=== PATIENT | male | born 1940 | race Caucasian/White ===

== ENCOUNTER 2016-08-12 10:22 | Outpatient (CLI) | payer MEDICARE, OTHER | END 2016-08-12 10:23 | LOC: EDBD → POD 10:22 | PROVIDERS: ATTEND Podiatrist Public Medicine | DX: M05.89 Other rheumatoid arthritis with rheumatoid factor of multiple sites (principal); B35.1 Tinea unguium; L60.0 Ingrowing nail; M79.674 Pain in right toe(s); M79.675 Pain in left toe(s) | CPT/HCPCS: 11721; G0463 ==

== ENCOUNTER 2016-08-20 15:06 | Observation (INO) | payer MEDICARE, OTHER ==
[2016-08-20] MEDS ORDERED: NITROGLYCERIN 0.4 MG TAB.SUBL SL ONE (15:23)
[2016-08-20] MEDS ORDERED: IPRATROPIUM/ALBUTEROL SULFATE 3 ML AMPUL.NEB NEB ONE (15:24)
--- NOTE | 2016-08-20 15:30 | ED Physician Documentation ---
Dyspnea - HISTORIAN Historian: patient, paramedics - HPI Stated Complaint: Short of breath Chief Complaint: Dyspnea Additional Information: exab sob today saw DR HAMMER 2d ago w/tx better w/ antibiotics till today - responded well to duoneb ems-bp still quite high 211/134 Onset: days ago (am) Duration: continues in ED, better Initiating Event: upper respiratory illness, other (on levaquin) Severity: moderate Exacerbated By: exertion, coughing Associated Symptoms: denies: chest pain, chest discomfort, bloody cough, productive cough, heart racing - ROS CONST: recent illness EYES/ENT: none GI/: none NEURO/PSYCH: denies: headache MS/SKIN/LYMPH: none - PAST HX Lung Disease: asthma, COPD, other (htn - rh arth) Cardiac Disease: denies: CHF, CAD PE Risk Factors: hypertension Surgeries/Procedures: other (cea rt hernia retinal detachment aortic dilation w/ aortic insuff) Allergies/Adverse Reactions: Allergies Allergy/AdvReac Type Severity Reaction Status Date / Time No Known Allergies Allergy Verified 08/20/16 15:19 Home Medications: Ambulatory Orders Medication Instructions Recorded Leflunomide [Arava] 5 mg PO DAILY 08/05/12 Aclidinium [place] [Tudorza 400 mcg IH BID 02/19/16 Pressair] Calcium 600-Vit D3 200 Tablet 1 each PO BID u2 02/19/16 - SOCIAL HX Smoking History: non-smoker (since ) Alcohol Use: rarely Drug Use: none - FAMILY HX Family History: no significant history - VITAL SIGNS Vital Signs: Vital Signs Temp Pulse Resp BP Pulse Ox 99 F 98 H 18 203/143 96 08/20/16 15:15 08/20/16 15:15 08/20/16 15:15 08/20/16 15:15 08/20/16 15:15 - REVIEWED ASSESSMENTS Nursing Assessment Reviewed: Yes Vitals Reviewed: Yes ED Results Lab/Radiology - Radiology Radiology Impressions: cxr= adv copd asvd aortic enlargement poss lt basal infiltrate - Orders Orders: ED Orders Category Date Time Status Place Saline Lock/IV Now Care 08/20/16 15:24 Ordered CHEST P.A.&LAT 2 VIEWS [RAD] Stat Exams 08/20/16 Ordered ARTERIAL BLOOD GAS Stat Lab 08/20/16 Uncollected CBC/PLATELET/DIFF Routine Lab 08/20/16 Ordered CMP Routine Lab 08/20/16 Ordered Ipratropium/Albuterol Sulfate [Duoneb] Med 08/20/16 15:24 Once 3 ml NEB NOW ONE Nitroglycerin [Nitroquick] Med 08/20/16 15:23 Once 0.4 mg SL NOW ONE Oxygen Daily Oxygen 08/20/16 15:30 Ordered EKG WITH COMPARISON Stat Ther 08/20/16 Ordered Dyspnea Physical Exam - EXAM General Appearance: moderate distress EENT: eye inspection normal Neck: nml inspection Respiratory: speaks full sentences, respiratory distress, prolonged expirations , decreased air movement, wheezes, rales, rhonchi. No: breath sounds nml, retractions, accessory muscle use CVS: reg. rate & rhythm, no murmur Abdomen: non-tender, no distention Skin: color nml, no rash. No: cyanosis, diaphoresis, pallor, ecchymosis Extremities: non-tender, normal range of motion, no edema, other (low legs feet cold pallor) Neuro/Psych: oriented x3, CN's nml as tested, motor nml, sensation nml, mood/ affect nml Discharge Clincal Impression: acute dexaberation copd, Uncontrolled hypertension Home Medications: Ambulatory Orders Leflunomide [Arava] 5 mg PO DAILY 08/05/12 Aclidinium [place] [Tudorza Pressair] 400 mcg IH BID 02/19/16 Calcium 600-Vit D3 200 Tablet 1 each PO BID u2 02/19/16 Comments: joao mcintosh w/pt/DR HAMMER admit observation Condition: Fair Disposition: ADMITTED INPATIENT Decision to Admit: [id number] Decision Time: 17:15
[2016-08-20] MEDS ORDERED: methylPREDNISolone SOD SUCC 125 MG/2 ML VIAL IVP ONE (15:35)
[2016-08-20 15:52] LABS: MEAN CORPUSCULAR HEMOGLOBIN 25.6 pg (28.0-34.0); MEAN CORPUSCULAR VOLUME 79.8 fl (80.0-100.0)
[2016-08-20] MEDS ORDERED: CloNIDine HCL 0.1 MG TABLET PO ONE ×2 (15:55→17:02)
[2016-08-20 16:00] LABS: eGFR (African) > 60; eGFR (Non-African) > 60
[2016-08-20 16:22] LABS: SEGMENTED NEUTROPHILS % 73 % (39-79)
[2016-08-20 16:23] LABS: BASOPHILS % 1 % (0-2); EOSINOPHILS % 1 % (0-7); MONOCYTES % 5 % (0-11)
[2016-08-20] MEDS ORDERED: IPRATROPIUM/ALBUTEROL SULFATE 3 ML AMPUL.NEB NEB SCH (18:00)
[2016-08-20 18:43] VITALS: BMI 20.2
--- NOTE | 2016-08-20 18:51 | Diagnostic Imaging Report ---
SINCERE GARIBAY [facility] [address] [facility].[address] [address] Report Submission Date: Aug 20, 2016 4:06:10 PM TALENT DIRECTOR Patient Study Name: EPHRAIM RAY Date: Aug 20, 2016 3:36:28 PM TALENT DIRECTOR Modality Type: CR Gender: M Description: CHEST : 39 Institution: [facility] Physician: SINCERE GARIBAY 3 views of the chest History: Shortness of breath Findings: Comparison: 2011, CT chest dated March 20, 2016 The cardiomediastinal silhouette is stable consistent with known aortic aneurysm The heart is normal in size Emphysema. Right basilar atelectasis is present There is no pleural effusion pneumothorax Right infrahilar scarring is again seen Thoracic spine vertebral body compression deformities and vertebroplasty changes are again noted Impression: 1. Right basilar atelectasis. No pleural effusion. Emphysema 2. Stable cardiomediastinal silhouette and aortic contour consistent with patient's known aortic aneurysm 3. Bilateral parahilar scarring again noted, right greater than left. Electronically signed on Aug 20, 2016 4:06:10 PM TALENT DIRECTOR by: Jasmyne LOWERY
[2016-08-20] MEDS ORDERED: CARVEDILOL 12.5 MG TABLET PO ONE (19:50)
[2016-08-20] MEDS ORDERED: CALCIUM CARB 600MG/VIT D-3 400 1 EACH TABLET ONE (19:50)
[2016-08-20] MEDS ORDERED: HYDROXYZINE HCL 25 MG TABLET PO ONE (19:50)
[2016-08-20] MEDS ORDERED: CARVEDILOL 25 MG TABLET PO SCH (21:00)
[2016-08-20] MEDS ORDERED: CALCIUM VIT D3 PO SCH (21:00)
[2016-08-20] MEDS: ACLIDINIUM BROMIDE 400 MCG IH SCH (22:51)
[2016-08-20] MEDS: HYDROXYCHLOROQUINE SULFATE 200 MG TABLET PO SCH (22:51)
[2016-08-21] MEDS: IPRATROPIUM/ALBUTEROL SULFATE 3 ML AMPUL.NEB NEB SCH ×3 (00:13→12:40)
[2016-08-21 07:40] LABS: ABG BASE EXCESS 1.9 (-2 - +2); ABG PH 7.46 (7.35-7.45)
[2016-08-21] MEDS ORDERED: VILANTEROL IH SCH (09:00)
[2016-08-21] MEDS ORDERED: LEFLUNOMIDE PO SCH (09:00)
[2016-08-21] MEDS ORDERED: LISINOPRIL 20 MG TABLET PO SCH (09:00)
[2016-08-21] MEDS ORDERED: FLUTICASONE IH SCH (09:00)
[2016-08-21] MEDS: HYDROXYCHLOROQUINE SULFATE 200 MG TABLET PO SCH (09:56)
[2016-08-21] MEDS: ACLIDINIUM BROMIDE 400 MCG IH SCH (09:59)
[2016-08-21 10:30] VITALS: BP 149/83
--- NOTE | 2016-09-30 12:58 | Discharge Summary ---
Discharge Summary - Discharge Sumary History of Present Illness: 76yo white male who two days prior to admission was seen in my clinic office for bronchitis, cough, GOMEZ. He was started on antibiotic and steroids. His condition deteriorated and was ween in the ED. Was felt to be having an exacerbation of his COPD. His BP was noted to be elevated quite a bit and was admitted for further evaluation and treatment. Condition at Discharge: Stable Home Medications: Ambulatory Orders Medication Instructions Recorded Leflunomide [Arava] 5 mg PO DAILY 08/05/12 Aclidinium [place] [Tudorza 400 mcg IH BID 02/19/16 Pressair] Calcium 600-Vit D3 200 Tablet 1 each PO BID u2 02/19/16 Ipratropium/Albuterol Sulfate 3 ml NEB Q6 PRN #60 ampul.neb 08/21/16 [Duoneb] Consultations this Visit: None Procedures this Visit: None Allergies/Adverse Reactions: Allergies Allergy/AdvReac Type Severity Reaction Status Date / Time No Known Allergies Allergy Verified 08/20/16 15:19 Discharge Summary: Patient was started on high flow nebulization treatments of albuterol every 4 hours. Patient was started on IV steroids. Patient is at her SaO2 gradually increased with decreasing his supplemental oxygen needs. Patient was found to be hyponatremic. Patient's vital signs otherwise remained stable. At the time of admission. In the ED patient blood pressure was high with a systolic at 212. By the time. Patient was breathing better and wished to lower his systolic had dropped to 140s. Patient's blood pressure remained stable throughout the remainder of hospitalization without any further intervention. At the time of discharge was felt that patient could be managed on an outpatient basis and was subsequently discharged home in stable condition. - Final Diagnosis (1) COPD (chronic obstructive pulmonary disease) Problems: improved with treatment (2) CAD (coronary artery disease) Problems: stable on home meds (3) Essential hypertension Problems: stable on home medication
== END 2016-08-21 13:15 | disposition home or self-care (01) ==
LOC: EDBD → ED 15:06 → INTOOBSV 17:31 → SOUTH 17:31 → EDBD 17:31
PROVIDERS: ADMIT Family Medicine; ATTEND Family Medicine
DX: J44.1 Chronic obstructive pulmonary disease with (acute) exacerbation (principal); I25.10 Atherosclerotic heart disease of native coronary artery without angina pectoris; I10 Essential (primary) hypertension
CPT/HCPCS: 36600; 71020; 80053; 82803; 85025; 93005; G0378; J2930; 96374; 99284; G0379

== ENCOUNTER 2016-12-02 10:00 | Outpatient (CLI) | payer MEDICARE, OTHER | END 2016-12-02 10:02 | LOC: EDBD → POD 10:00 | PROVIDERS: ATTEND Podiatrist Public Medicine | DX: B35.1 Tinea unguium (principal); L60.0 Ingrowing nail; M79.674 Pain in right toe(s); M79.675 Pain in left toe(s); M05.89 Other rheumatoid arthritis with rheumatoid factor of multiple sites | CPT/HCPCS: 11721; G0463 ==

== ENCOUNTER 2017-02-25 11:00 | Outpatient (CLI) | payer MEDICARE, OTHER | END 2017-02-25 11:02 | LOC: RT 11:00 | PROVIDERS: ATTEND Family Medicine | DX: R00.2 Palpitations (principal) ==

== ENCOUNTER 2017-03-03 09:32 | Outpatient (CLI) | payer MEDICARE, OTHER | END 2017-03-03 09:33 | LOC: POD 09:32 | PROVIDERS: ATTEND Podiatrist Public Medicine | DX: B35.1 Tinea unguium (principal); M79.674 Pain in right toe(s); M79.675 Pain in left toe(s); L60.0 Ingrowing nail; M05.89 Other rheumatoid arthritis with rheumatoid factor of multiple sites | CPT/HCPCS: 11721; G0463 ==

== ENCOUNTER 2017-06-02 09:30 | Outpatient (CLI) | payer MEDICARE, OTHER | END 2017-06-02 10:30 | LOC: POD 09:30 | PROVIDERS: ATTEND Podiatrist Public Medicine | DX: M05.89 Other rheumatoid arthritis with rheumatoid factor of multiple sites (principal); B35.1 Tinea unguium; L60.0 Ingrowing nail; M79.674 Pain in right toe(s); M79.675 Pain in left toe(s) | CPT/HCPCS: 11721; G0463 ==

== ENCOUNTER 2017-06-24 15:52 | Outpatient (CLI) | payer MEDICARE, OTHER ==
--- NOTE | 2017-06-24 18:26 | Diagnostic Imaging Report ---
SAJI HAMMER~ [facility] [address] [facility] [address] [address] ~ ~ ~ ~ Report Submission Date: Jun 24, 2017 4:33:58 PM VISUAL TRAINING AIDE Patient ~ Study Name: EPHRAIM RAY ~ Date: Jun 24, 2017 4:14:50 PM VISUAL TRAINING AIDE ~ Modality Type: CR Gender: M ~ Description: SPINE : 39 ~ Institution: [facility] Physician: SAJI HAMMER ~ ~ ~ Examination: Plain film lumbar spine History: Back discomfort. Findings: 3 views of the lumbar spine demonstrates osteopenia. Normal height.~ No anterior compression. Scattered ossific spurs. Aortoiliac stent. Impression: Osteopenia and degenerative changes. No vertebral body compression deformity. ~ Electronically signed on Jun 24, 2017 4:33:58 PM VISUAL TRAINING AIDE by: Stone LOWERY
== END 2017-06-24 15:53 ==
LOC: RAD 15:52
PROVIDERS: ATTEND Family Medicine
DX: M54.5 Low back pain (principal)
CPT/HCPCS: 72100

== ENCOUNTER 2017-07-20 11:30 | Observation (INO) | payer MEDICARE, OTHER ==
[2017-07-20 11:53] LABS: MEAN CORPUSCULAR HEMOGLOBIN 27.2 pg (28.0-34.0); MEAN CORPUSCULAR VOLUME 84.9 fl (80.0-100.0)
[2017-07-20 12:07] LABS: eGFR (African) > 60; eGFR (Non-African) > 60
[2017-07-20 12:18] LABS: MONOCYTES % 3 % (0-11); SEGMENTED NEUTROPHILS % 82 % (39-79)
--- NOTE | 2017-07-20 12:39 | Diagnostic Imaging Report ---
JOSE MENJIVAR [facility] [address] [facility] [address] [address] Report Submission Date: Jul 20, 2017 12:22:54 PM TOXICOLOGIST Patient Study Name: EPHRAIM RAY Date: Jul 20, 2017 11:52:06 AM TOXICOLOGIST Modality Type: CR Gender: M Description: CHEST : 39 Institution: [facility] Physician: JOSE MENJIVAR Examination: PA and lateral chest. History: Evaluate lung hutson. Comparison exam: 20 August 2016 Findings: PA lateral chest demonstrate a normal cardiac size. Again identified is significant tortuosity of the thoracic aorta: stable to prior study. Diffuse emphysematous changes. Linear density involving the right minor fissure. Flattening of the diaphragm on lateral view. Mid thoracic kyphosis with kyphoplasty. Impression: Emphysematous changes. New linear density scarring/atelectasis involving the right minor fissure. Stable significant tortuosity of the thoracic aorta. Electronically signed on Jul 20, 2017 12:22:54 PM TOXICOLOGIST by: Stone LOWERY
[2017-07-20] MEDS ORDERED: IPRATROPIUM/ALBUTEROL SULFATE 3 ML AMPUL.NEB NEB PRN (15:41)
[2017-07-20 15:55] VITALS: BMI 19.1
[2017-07-20] MEDS ORDERED: SALINE FLUSH 10 ML DISP.SYRIN IVF ONE ×2 (16:23→22:41)
[2017-07-20] MEDS: ENOXAPARIN SODIUM 30 MG/0.3 ML DISP.SYRIN SQ SCH (16:38)
[2017-07-20] MEDS: 0.9 % SODIUM CHLORIDE 1,000 ML IV SCH (16:38)
--- NOTE | 2017-07-20 16:59 | History and Physical Report ---
History of Present Illnes - History of Present Illness Reason for Visit: shortness of breath History of Present Illness: Tal is a 77yo male with a medical history that includes COPD and RA. He has been feeling poorly for about 6 days now with shortness of breath and productive cough. He has also started feeling weak and lightheaded, he thinks from the poor breathing. Under normal circumstances he uses the Albuterol once daily, but he has been using it multiple times daily. His chest feels tight. He presented at clinical this morning and then had labwork that showed WBC count of 13.4 with 82% neutrophils. Chest Xray done today is essentially stable from the last exam, with a small amount of new right sided atelectasis. - Past Medical History Cardiac: HTN, Other (AAA) Pulmonary: COPD, Sleep Apnea Gastrointestinal: Constipation. denies: Inflam bowel disease Rheumatologic: Rheumatoid arthritis. denies: Vasculitis Dermatology: Basal cell - Past Surgical History Past Surgical History: Cataract Removal, Other (AAA stent, rotator cuff repair, RUL lobectomy, Carotid endartectomy) - Past Family History Mother Family History: Cancer (breast), Hypertension - Past Social History Smoke: Quit (1998) Alcohol: Rare Drugs: None Lives: Alone - Health Maintenance Health Maintenance: Influenza Vaccine, Pneumococcal Vaccine Influenza Vaccine: Current for this Influenza Season Pneumonia Vaccine: Yes Resuscitation Status: Resusciation Status Resuscitation Status Full Code Review of Systems - Review of Systems Constitutional: Weakness, Malaise. negative: Fever Eyes: negative: pain, vision change ENT: negative: Ear Pain, Ear Discharge Respiratory: Cough, Shortness of Breath, SOB with Excertion, Sputum. negative: Dry Cardiovascular: Light Headedness. negative: Chest Pain, Edema Gastrointestinal: negative: Nausea, Abdominal Pain Genitourinary: negative: Dysuria, Hematuria Musculoskeletal: negative: Leg Pain, Foot Pain Skin: negative: Rash, Lesions Neurological: Weakness. negative: Change in Speech, Confusion, Seizures - Medications/Allergies Allergies/Adverse Reactions: Allergies Allergy/AdvReac Type Severity Reaction Status Date / Time No Known Allergies Allergy Verified 08/20/16 15:19 Current Inpatient Medications: Current Inpatient Medications Albuterol/Ipratropium (Duoneb) 3 ml NEB Q4 PRN PRN Reason: Wheezing Enoxaparin Sodium (Lovenox) 30 mg SQ QD JACOBO Stop: 08/02/17 16:01 Last Admin: 01/30/18 16:38 Dose: 30 mg Sodium Chloride (Normal Saline) 1,000 mls @ 100 mls/hr IV Q10H [facility] Last Admin: 07/20/17 16:38 Dose: 100 mls/hr Exam - Exam Vital Signs: Vital Signs (72 hours) 07/20/17 13:49 Temperature 98.7 F Pulse Rate [ 128 H Pulse ox] Respiratory 20 Rate Blood Pressure 97/73 [Left Arm] O2 Sat by Pulse 96 Oximetry General: Alert, Oriented to Person, Oriented to Place, Oriented to Time, Cooperative, Mild distress HEENT: Atraumatic, PERRLA, EOMI Neck: No: Stridor, Lymphadenopathy Lungs: Speaks full Sentences, Wheezes, Prolonged Expiration, Accessory Muscle Use. No: Rales Cardiovascular: Regular rate. No: Rubs, Murmur Abdomen: Soft, No tenderness. No: Distended Integumentary: [place], Warm, Dry Extremities: No clubbing, No cyanosis, No tenderness/swelling Neurological: Normal speech, Normal tone, Cranial nerves 3-12 NL Psych/Mental Status: Mental status NL, Mood NL - Laboratory Results Laboratory Results: Laboratory Results 07/20/17 07/20/17 11:43 11:43 WBC 13.40 H RBC 5.22 H Hgb 14.2 Hct 44.3 MCV 84.9 MCH 27.2 L MCHC 32.0 RDW 13.9 Plt Count 264 Seg Neutrophils % 82 H Lymphocytes % 15 L Monocytes % 3 Plt Morphology Comment Normal RBC Morph Comment Normal Sodium 136 Potassium 5.2 H Chloride 96 L Carbon Dioxide 23 BUN 42 H Creatinine 1.10 Est GFR ( Amer) > 60 Est GFR (Non-Af Amer) > 60 Glucose 96 Calcium 9.7 - Interpretation/Data Interpretation/Data: Chest Xray with slight right atelectasis Assessment/Plan - Assessment/Plan (1) Dehydration Status: Acute Current Visit: Yes Assessment: BUN 42, has been normal in the past Plan: IV fluids overnight, recheck labs in a.m. (2) Leukocytosis Status: Acute Current Visit: Yes Assessment: WBC 13.4, Segs 82% Plan: Mild, most likely d/t respiratory issues, will start Azithromycin (3) COPD (chronic obstructive pulmonary disease) Status: Chronic Current Visit: Yes Qualifiers: COPD type: emphysema Assessment: Respiratory effort is increased and pt subjectively short of breath. O2 sat was 98% when checked earlier, immediately after breathing treatment. Plan: Start Duoneb and O2 as needed to keep O2 above 90%, add prednisone and monitor. VTE Assessment - RISK FACTOR SCORE VTE RISK FACTOR SCORES: AGE OVER 60 YEARS, ACUTE INFECTION OTHER THEN SEPSIS - RISK VTE MODERATE RISK: SCORE OF 2 (RISK PROXIMAL DVT 2-4%) PROPHYAXIS NEEDED
[2017-07-20] MEDS ORDERED: AZITHROMYCIN 250 MG TABLET PO ONE (18:14)
[2017-07-20] MEDS: predniSONE 20 MG TABLET PO SCH ×2 (18:48→21:05)
[2017-07-21] MEDS: 0.9 % SODIUM CHLORIDE 1,000 ML IV SCH ×2 (02:00→12:29)
[2017-07-21 06:47] LABS: BASOPHILS % 0.4 (0.0-1.5); EOSINOPHILS % 0.2 % (0.0-6.8); MEAN CORPUSCULAR HEMOGLOBIN 26.7 pg (28.0-34.0); MEAN CORPUSCULAR VOLUME 83.6 fl (80.0-100.0); MONOCYTES % 2.3 % (0.0-11.0); NEUTROPHILS # 6.1 # k/uL (1.4-7.7)
[2017-07-21 06:51] LABS: eGFR (African) > 60; eGFR (Non-African) > 60
--- NOTE | 2017-07-21 08:33 | Inpatient Progress Note ---
Subjective - Required Recertification Statement I anticipate X number of days because-include discharge plan: 0 - Review of Systems Events since last encounter: none Subjective: Pt feeling good, better than yesterday. Hasn't been up to walk much. Got up during the night by himself to go to the bathroom and did fine, denies lightheadedness/weakness. Will see how he does this morning when he has some help to get up. Eating well and breathing better. General: Appetite. Denies: Chills, Night Sweats HEENT: Denies: Visual Changes, Eye Pain Pulmonary: Denies: Dyspnea, Pleuritic Chest Pain Cardiovascular: Denies: Chest Pain, Edema Gastrointestinal: Denies: Nausea, Vomiting Objective - Exam Vitals and I&O: Vital Signs Temp 97.0 F L 07/21/17 05:58 Pulse 97 H 07/21/17 05:58 Resp 20 07/21/17 05:58 BP 119/83 07/21/17 05:58 Pulse Ox 94 07/21/17 05:58 Intake & Output 07/20/17 07/20/17 07/21/17 11:59 23:59 11:59 Intake Total 300 1220 Balance 300 1220 Weight 62.142 kg Intake: IV 1100 Left Upper arm 1100 Oral 300 120 Other: # Voids 1 General: Alert, Oriented to Person, Oriented to Place, Oriented to Time, Cooperative, No acute distress HEENT: Atraumatic, EOMI Lungs: Clear to auscultation, Speaks full Sentences, Wheezes (slight in upper lobe) Cardiovascular: Regular rate, No murmurs Abdomen: No: Distended, Rigid Extremities: No edema, No tenderness/swelling Skin: Normal, [place], Warm, Dry Psych/Mental Status: Mental status NL, Appropriate Affect - Results Results: Laboratory Results WBC 7.20 K/ul (4.00-12.00) 07/21/17 06:00 RBC 4.63 M/ul (3.90-5.20) 07/21/17 06:00 Hgb 12.4 g/dL (12.0-18.0) 07/21/17 06:00 Hct 38.8 % (37.0-53.0) 07/21/17 06:00 MCV 83.6 fl (80.0-100.0) 07/21/17 06:00 MCH 26.7 pg (28.0-34.0) L 07/21/17 06:00 MCHC 31.9 g/dL (30.0-36.0) 07/21/17 06:00 RDW 13.8 % (11.3-14.3) 07/21/17 06:00 Plt Count 219 K/mm3 (130-400) 07/21/17 06:00 Neut % (Auto) 85.2 % (39.0-79.0) H 07/21/17 06:00 Lymph % (Auto) 11.5 % (16.0-50.0) L 07/21/17 06:00 [place] % (Auto) 2.3 % (0.0-11.0) 07/21/17 06:00 Eos % (Auto) 0.2 % (0.0-6.8) 07/21/17 06:00 Baso % (Auto) 0.4 (0.0-1.5) 07/21/17 06:00 Neut # (Auto) 6.1 # k/uL (1.4-7.7) 07/21/17 06:00 Lymph # (Auto) 0.8 # k/uL (0.6-4.0) 07/21/17 06:00 [place] # (Auto) 0.2 # k/uL (0.0-0.9) 07/21/17 06:00 Eos # (Auto) 0.0 # k/uL (0.0-0.6) 07/21/17 06:00 Baso # (Auto) 0.0 # k/uL (0.0-0.5) 07/21/17 06:00 Seg Neutrophils % 82 % (39-79) H 07/20/17 11:43 Lymphocytes % 15 % (16-50) L 07/20/17 11:43 Reactive Lymphs % 0.6 % (0.0-5.0) 07/21/17 06:00 Monocytes % 3 % (0-11) 07/20/17 11:43 Reactive Lymphs # 0.0 # k/uL (0.0-0.8) 07/21/17 06:00 Plt Morphology Comment Normal (NORMAL) 07/20/17 11:43 RBC Morph Comment Normal (NORMAL) 07/20/17 11:43 Sodium 135 mmol/L (136-145) L 07/21/17 06:00 Potassium 5.4 mmol/L (3.5-5.1) H 07/21/17 06:00 Chloride 103 mmol/L (98-107) 07/21/17 06:00 Carbon Dioxide 20 mmol/L (22-30) L 07/21/17 06:00 BUN 38 mg/dL (9-20) H 07/21/17 06:00 Creatinine 0.90 mg/dL (0.66-1.25) 07/21/17 06:00 Estimated Creat Clear 59 07/21/17 06:00 Est GFR ( Amer) > 60 (60-) 07/21/17 06:00 Est GFR (Non-Af Amer) > 60 (60-) 07/21/17 06:00 Glucose 107 mg/dL (74-106) H 07/21/17 06:00 Calcium 8.8 mg/dL (8.4-10.2) 07/21/17 06:00 Assessment/Plan - Assessment/Plan (1) Dehydration Status: Acute Current Visit: Yes Assessment: BUN now 38 was 42 yesterday. Clinically well Plan: Continue fluids, monitor (2) Leukocytosis Status: Acute Current Visit: Yes Assessment: Improved now 7.2 from 13.4 Plan: Monitor clinically, continue Azithromycin (3) COPD (chronic obstructive pulmonary disease) Status: Chronic Current Visit: Yes Qualifiers: COPD type: emphysema Assessment: Stable/improved. Pt subjectively breathing better, exam with less wheezing Plan: Continue duoneb, prednisone, IS, and monitor (4) Hyperkalemia Status: Acute Current Visit: Yes Assessment: now 5.4 from 5.2 yesterday Plan: Continue fluids, stop Lisinopril
[2017-07-21] MEDS ORDERED: AZITHROMYCIN 200 MG/5 ML PO SCH (09:00)
[2017-07-21] MEDS ORDERED: LISINOPRIL 20 MG TABLET PO SCH (09:00)
[2017-07-21] MEDS ORDERED: HYDROCHLOROTHIAZIDE 25 MG TABLET PO SCH (09:00)
[2017-07-21] MEDS: predniSONE 20 MG TABLET PO SCH (10:05)
[2017-07-21] MEDS: ENOXAPARIN SODIUM 30 MG/0.3 ML DISP.SYRIN SQ SCH (16:09)
[2017-07-21 16:30] VITALS: BP 131/80
== END 2017-07-21 17:45 | disposition home or self-care (01) ==
LOC: LAB 11:30 → UNDOADMOB 12:42 → SOUTH 12:42
PROVIDERS: ADMIT Physician Assistant; ATTEND Physician Assistant
DX: E87.5 Hyperkalemia (principal); E86.0 Dehydration; D72.829 Elevated white blood cell count, unspecified; J44.9 Chronic obstructive pulmonary disease, unspecified
CPT/HCPCS: 36415; 71020; 80048; 85025; G0378; J1650; J7030; 71046; 96360; 96361; 99217; 99219; S1016

== ENCOUNTER 2017-09-09 15:58 | Outpatient (CLI) | payer MEDICARE, OTHER | END 2017-09-09 16:00 | LOC: RAD 15:58 | PROVIDERS: ATTEND Family Medicine | DX: K22.0 Achalasia of cardia (principal) | CPT/HCPCS: 74230 ==

== ENCOUNTER 2017-10-29 11:54 | Outpatient (CLI) | payer MEDICARE, OTHER ==
--- NOTE | 2017-11-12 10:43 | CONSULTATION REPORT ---
PRIMARY CARE PROVIDER: Dr. Hang Schwartz CONSULTING PHYSICIAN: Ernestina Sood MD CHIEF COMPLAINT: "I have COPD and need a lung doctor." PROBLEM LIST: 1. Severe chronic obstructive pulmonary disease, GOLD Class 3: On home oxygen at night, 2 liters per nasal cannula. 2. Seropositive rheumatoid arthritis. 3. Hypertension. 4. Osteoporosis. 5. Abdominal aortic aneurysm: Status post stent. 6. Obstructive sleep apnea. 7. Right upper lobectomy for a nodule: [facility] in 2010. HISTORY OF PRESENT ILLNESS: This is a 77-year-old male who states that he has COPD and has difficulty breathing. At present, it appears he is only on albuterol MDI and a DuoNeb nebulizer. He had been on Tudorza (aclidinium). He says he stopped it because it was too expensive. He was also on Breo (fluticasone-vilanterol) and that was stopped by his physician for some reason. Patient states that he went to [place], [place], and underwent a stem cell treatment for COPD in April of 2016. He states he clinically did not feel any better but that his oxygen saturations slightly improved. Currently, patient states he can walk approximately one-half block before he gets dyspnea on exertion. He uses home oxygen only at night. He uses his DuoNeb nebulizer as his only nebulizer currently. Patient denies chest pain. There is no PND. No edema. No esophageal reflux disease. No postnasal drip. No sinus problems. Patient has not been on any prednisone for his lung disease. He has been on antibiotics in the past for an episode of pneumonia. He denies any fever, chills, or sweats. He states he has lost some weight but has a good appetite and his energy level is not that good. He does have an early a.m. cough but it is clear sputum. He denies any previous history of asthma or DVT. Tobacco use: He quit in December 1998. He smoked for 30 to 40 years approximately 2 packs per day. I have reviewed clinic records from [facility] that arrived after I saw the patient. The records I obtained were from [facility] are from October 2015 to April 2017. The majority of the clinic visits were for rheumatoid arthritis. He had been treated in the past with leflunomide, methotrexate, and Plaquenil. At present, he is not on any medicines for his rheumatoid arthritis. During that time, his pulmonary status was described as stable. He saw the mold repairer on May 18, 2017. They said that his previous visit was in September of 2014. They describe his COPD as severe quoting PFT done on October 19, 2013, with a FVC of 0.66 liters, FEV1 of 0.3 liters, and FEV1 /FVC was 0.45, no bronchodilator response. According to their note, he was managed successfully on Breo inhaler twice a day (which is fluticasone- vilanterol). Also included in the records was an echocardiogram done on June 03, 2016, showing an EF of 60% and no regional wall motion abnormality. Please also note that recently the patient has had many visits to either [facility] Emergency Department or Clinic. Patient was hospitalized on July 20, 2017, for dehydration and a COPD exacerbation. He then had multiple clinic visits including on August 10, August 30, September 06, September 15, and October 01, all in the year 2017. REVIEW OF SYSTEMS: Please see HPI for pertinent review of systems. Also, please see [facility] patient intake record. ALLERGIES: No known allergies. MEDICATIONS: 1. Diltiazem 120 mg daily. 2. Multivitamin 1 tablet daily. 3. Calcium 1 tablet daily. 4. Albuterol MDI p.r.n. shortness of breath. 5. DuoNeb b.i.d. and p.r.n. shortness of breath. SOCIAL HISTORY: He lives alone. He is not . He worked for many years up in [place]. FAMILY HISTORY: Mother with cancer. PHYSICAL EXAMINATION: GENERAL: This is a well-developed thin male in no acute distress speaking in full sentences. VITAL SIGNS: BP: 154/90, P: 99, R: 20, T: 96.9, oxygen saturation is 92% on room air. Height: 6 feet. Weight: 141 pounds. BMI is 19.12. HEENT: Pupils are equal and reactive to light. Oropharynx is clear. No thrush. No erythema. NECK: Supple. No JVD. No lymphadenopathy. No thyromegaly. LUNGS: Barrel chested. Decreased bilateral air movement. Occasional wheezing. No crackles. No rhonchi. CARDIAC: Rate and rhythm are regular. No murmur, rubs, or gallops. S1, S2 without S3 or S4. ABDOMEN: Positive bowel sounds. Soft and nontender. No organomegaly. EXTREMITIES: No cyanosis, clubbing, or edema. NEUROLOGIC: Alert and oriented x3. Grossly nonfocal exam. IMAGING: Imaging was independently reviewed by me personally. 1. Chest x-ray on August 20, 2016. Hyperexpansion. [place]. Tortuous aorta. Flat diaphragm with an enlarged retrosternal air space all consistent with COPD. ASSESSMENT AND PLAN: PROBLEM #1: Severe chronic obstructive pulmonary disease (COPD), GOLD Class 3. I discussed with the patient the different type of inhalers, aside from albuterol and the nebulizer, DuoNeb. At present, he does not want to use any of the inhalers primarily due to expense. PLAN: 1. Obtain current PFT at [facility]. 2. Obtain records from the [facility] regarding the stem cell therapy for COPD. 3. We will consider chest CT to delineate the severity of his emphysema. 4. We will discuss the benefits of pulmonary rehab with the patient on the next visit. 5. Return to clinic in 1 month. cc: Dr. Hang LOWERY
== END 2017-10-29 11:56 ==
LOC: PULMONARY 11:54
PROVIDERS: ATTEND Internal Medicine Pulmonary Disease
DX: J44.9 Chronic obstructive pulmonary disease, unspecified (principal); M05.9 Rheumatoid arthritis with rheumatoid factor, unspecified; I10 Essential (primary) hypertension; M81.0 Age-related osteoporosis without current pathological fracture; G47.33 Obstructive sleep apnea (adult) (pediatric)
CPT/HCPCS: 99214; G0463

== ENCOUNTER 2017-11-26 12:20 | Outpatient (CLI) | payer MEDICARE, OTHER ==
--- NOTE | 2017-12-08 13:08 | OP Clinic Progress Note ---
PRIMARY CARE PROVIDER: Dr. Hang Schwartz CHIEF COMPLAINT: Returning to clinic for COPD follow up. PROBLEM LIST: 1. Severe chronic obstructive pulmonary disease, GOLD Class 3: On home oxygen at night at 2 liters per nasal cannula. 2. Stem cell treatment for COPD in April 2016. 3. Seropositive rheumatoid arthritis. 4. Hypertension. 5. Osteoporosis. 6. Abdominal aortic aneurysm: Status post stent. 7. Obstructive sleep apnea. 8. Right upper lobectomy for a nodule: [facility] in 2010. HISTORY OF PRESENT ILLNESS: This is a 77-year-old male who returns to clinic after 1 month and our initial meeting. He current states he feels good. Denies shortness of breath. No chest pain. No cough. No sputum production. He is currently using his DuoNeb nebulizer b.i.d. and p.r.n. During our last visit, we discussed the possibility of adding other nebulized medicines and patient states that today he is interested in exploring that. ALLERGIES: No known allergies. MEDICATIONS: 1. Diltiazem 120 mg daily. 2. Albuterol MDI p.r.n. shortness of breath. 3. DuoNeb nebulizer 1 inhalation b.i.d. and p.r.n. 4. Multivitamin 1 tablet daily. 5. Calcium 1 tablet daily. PHYSICAL EXAMINATION: Vital Signs: BP: 157/105, P: 115. R: 22, T: 97.1, Room air oxygen saturation was 96%. General: This is a well-developed, well-nourished male in no acute distress speaking in full sentences. HEENT: Pupils are equal and reactive to light. Oropharynx is clear. No thrush. LUNGS: Good bilateral air movement. CARDIAC: Rate and rhythm are regular. Tachycardic. No murmur, rubs, or gallops. ABDOMEN: Soft and nontender. EXTREMITIES: No cyanosis, clubbing, or edema. NEUROLOGIC: Alert and oriented x3. Grossly nonfocal. IMAGING: All imaging independently reviewed by me personally. 1. Chest CT on August 07, 2016, done at [facility]. Severe emphysema throughout. Mild bronchiectasis. ASSESSMENT AND PLAN: PROBLEM #1: Severe chronic obstructive pulmonary disease, GOLD Class 3. At present, patient states he feels relatively good and he is interested in trying long-term beta-agonist via the nebulizer and a steroid via the nebulizer. PLAN: 1. Formoterol nebulizer 20 mcg via the nebulizer b.i.d. 2. Budesonide 0.5 mg via the nebulizer b.i.d. 3. Patient will reschedule a PFT appointment: He missed his last appointment. PROBLEM #2: Hypertension. On his visit today, his blood pressure was 157/105. PLAN: 1. Continue current medications. 2. Assess blood pressure on next visit. cc: Dr. Hang LOWERY
== END 2017-11-26 12:21 ==
LOC: PULMONARY 12:20
PROVIDERS: ATTEND Internal Medicine Pulmonary Disease
DX: J44.9 Chronic obstructive pulmonary disease, unspecified (principal); I10 Essential (primary) hypertension
CPT/HCPCS: 99214; G0463

== ENCOUNTER 2018-01-18 09:53 | Outpatient (CLI) | payer MEDICARE, OTHER ==
[2018-01-18] MEDS ORDERED: ALBUTEROL SULFATE 2.5 MG/3 ML AMPUL.NEB NEB ONE (10:16)
[2018-01-18 10:27] LABS: ABG BASE EXCESS 2.8 (-2 - +2); ABG PH 7.44 (7.35-7.45)
== END 2018-01-18 09:55 ==
LOC: RT 09:53
PROVIDERS: ATTEND Internal Medicine Pulmonary Disease
DX: J44.9 Chronic obstructive pulmonary disease, unspecified (principal)
CPT/HCPCS: 36600; 82803; 94060

== ENCOUNTER 2018-02-11 11:50 | Outpatient (CLI) | payer MEDICARE, OTHER ==
--- NOTE | 2018-02-14 16:02 | OP Clinic Progress Note ---
PRIMARY CARE PROVIDER: Dr. Hang Schwartz CHIEF COMPLAINT: "I am here for follow up for my COPD." PROBLEM LIST: 1. Severe chronic obstructive pulmonary disease, GOLD Class 3: On home oxygen at night at 2 liters per nasal cannula. 2. Stem cell treatment for COPD in April 2016. 3. Seropositive rheumatoid arthritis. 4. Hypertension. 5. Osteoporosis. 6. Abdominal aortic aneurysm: Status post stent. 7. Obstructive sleep apnea. 8. Right upper lobectomy for a nodule: [facility] in 2010. HISTORY OF PRESENT ILLNESS: This is a 77-year-old male who returns for follow up for his COPD. He states overall that he is feeling okay. On our last visit, I prescribed budesonide and formoterol via the nebulizer. He states that he was able to get the budesonide and used it as directed and he likes it, but the formoterol nebulizer was far to expensive and he could not afford it. He states that his shortness of breath gets noticeably worse with the high humidity. He continues to use DuoNeb and overall likes administering his medicines via nebulizer. He does have a daily a.m. cough but it is thin and clear secretions. He has used Spiriva in the past. He felt that it was not that helpful and also, it was too expensive. I reviewed records from his stem cell transplant after the patient had left the clinic. Patient went to the [facility] in [place], [place], which I believe is part of a company called [employer] out of [place], [place]. Patient underwent PFTs prior to the stem cell transfusion and his FEV1 was 30% of predicted, FVC was 54% of predicted, and FEV1/FVC was 0.56. His best FEV1 was 0.95 liters with the worst being 0.87 liters. His best FVC was 2.29 liters with the lowest being 2.17 liters. On April 22, 2016, patient underwent venous autologous stem cell extraction and then his blood is processed in their lab and he then subsequently undergoes a venous autologous stem cell re-infusion administered with 100 mL of normal saline and the patient is also given a Glutathione via nebulizer. Patient had this done for 3 days in a row on April 22, April 23, and April 24. The institute has been asking him to come back for further treatment, thus far, the patient has deferred and not returned. ALLERGIES: No known allergies. MEDICATIONS: 1. Diltiazem 120 mg daily. 2. Albuterol MDI p.r.n. shortness of breath. 3. DuoNeb nebulizer 1 inhalation b.i.d. and p.r.n. 4. Multivitamin 1 tablet daily. 5. Budesonide 0.5 mg b.i.d. 5. Calcium 1 tablet daily. PHYSICAL EXAMINATION: VITAL SIGNS: BP: 151/89, P: 100, R: 20, T: 97.1, room air oxygen saturation was 94%. Weight: 141 pounds (which is stable, no change). GENERAL: This is a well-developed thin male in no acute distress speaking in full sentences. HEENT: Pupils are equal and reactive to light. Oropharynx is clear. No thrush. No erythema. NECK: Supple. No lymphadenopathy. LUNGS: Decreased air excursion bilaterally. Clear to auscultation. No wheezes, rales, or rhonchi. CARDIAC: Rate and rhythm are regular. Tachycardic. No murmur, rubs, or gallops. ABDOMEN: Soft and nontender. EXTREMITIES: No cyanosis, clubbing, or edema. NEUROLOGIC: Alert and oriented x3. Grossly nonfocal exam. IMAGING: All imaging independently reviewed by me personally. 1. PFTs on January 18, 2018: FVC of 3 liters, 69% of predicted, FEV1 was 1.02 liters, 30% of predicted, FEV1/FVC was 0.34. INTERPRETATION: Severe COPD, GOLD Class 3. 2. Room air ABG: A pH of 7.44, pCO2 of 40, pO2 of 67. Oxygen saturation was 97%. ASSESSMENT AND PLAN: PROBLEM #1: Severe chronic obstructive pulmonary disease, GOLD Class 3. Overall, patient appears stable. He definitely likes the budesonide via nebulizer, as well as his DuoNeb. He was unable to afford formoterol; therefore, I will try a prescription for arformoterol to see if that would be better covered under his insurance. PLAN: 1. Arformoterol 15 mcg via nebulizer b.i.d. 2. Budesonide 0.5 mg via nebulizer b.i.d. 3. Continue DuoNeb via nebulizer. 4. Continue albuterol MDI as a rescue inhaler. 5. I have referred the patient for pulmonary rehabilitation. 6. Return to clinic in 3 months. cc: Dr. Hang LOWERY
== END 2018-02-11 14:23 ==
LOC: PULMONARY 11:50
PROVIDERS: ATTEND Internal Medicine Pulmonary Disease
DX: J44.9 Chronic obstructive pulmonary disease, unspecified (principal); M05.9 Rheumatoid arthritis with rheumatoid factor, unspecified; I10 Essential (primary) hypertension; M81.0 Age-related osteoporosis without current pathological fracture; G47.33 Obstructive sleep apnea (adult) (pediatric)
CPT/HCPCS: 99214; G0463

== ENCOUNTER 2018-06-27 17:37 | Emergency (ER) | payer MEDICARE, OTHER ==
[2018-06-27] MEDS ORDERED: IPRATROPIUM/ALBUTEROL SULFATE 3 ML AMPUL.NEB NEB ONE (17:42)
[2018-06-27] MEDS ORDERED: IPRATROPIUM/ALBUTEROL SULFATE 3 ML AMPUL.NEB NEB STA ×2 (17:43→18:19)
[2018-06-27] MEDS ORDERED: methylPREDNISolone SOD SUCC 125 MG/2 ML VIAL IVP STA (17:44)
[2018-06-27] MEDS ORDERED: 0.9 % SODIUM CHLORIDE 1,000 ML IV STA (17:45)
--- NOTE | 2018-06-27 17:50 | ED Physician Documentation ---
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 pt presents to the ED via EMS c/o dyspnea since yesterday hx of COPD. pt wears O2 2L NC at night only and was too weak to get to his oxygen then called ems. pt reports O2 sat at home 77%. pt reports diffuse chest tightness 3/10, chills, nonproductive cough (not able to bring up secretions per pt) pt denies current syncope/near syncope, headache, dizziness, visual disturbances, n/v/d, fever, rash, sick contacts, dysuria, trauma. melena or hematochezia, bleeding or easy bruising, change in bowel or bladder function, no recent weight loss/gain, anxiety or depression. ROS Negative unless otherwise specified. Severity: moderate - ROS CONST: weakness EYES/ENT: denies: problems with vision, sore throat, nasal drainage, nasal congestion GI/: denies: abdominal pain, problems urinating, vomiting, nausea, diarrhea - PAST HX Past History: COPD Allergies/Adverse Reactions: Allergies Allergy/AdvReac Type Severity Reaction Status Date / Time No Known Drug Allergies Allergy Verified 06/27/18 17:55 Home Medications: Ambulatory Orders Medication Instructions Recorded Ipratropium/Albuterol Sulfate 3 ml NEB Q6 PRN #60 ampul.neb 08/21/16 [Duoneb] - SOCIAL HX Smoking History: less than 1 pack/day Alcohol Use: none Drug Use: none - FAMILY HX Family History: No - VITAL SIGNS Vital Signs: Vital Signs Temp Pulse Resp BP Pulse Ox 131/80 07/21/17 14:00 - REVIEWED ASSESSMENTS Nursing Assessment Reviewed: Yes Vitals Reviewed: Yes Progress - Progress Progress: Pt unable to lay flat for CTA. study deferred. after 3 duoneb, 1 pulmicort, 1 xopenex pt remains tachypenic RR 30s HR 95%. a/o x 3 skin pwd. pt reports respiratory fatigue. No Bipap at this facility. [address] [facility]. accepted pt for transfer via [facility]. Critical Care Note - Critical Care Note Total Time (mins): 158 (entire stay) ED Results Lab/Radiology - Radiology Radiology Impressions: Report Submission Date: Jun 27, 2018 6:08:51 PM SCIENCE INSTRUCTOR Patient Study Name: EPHRAIM RAY Date: Jun 27, 2018 5:46:44 PM SCIENCE INSTRUCTOR Modality Type: DX Gender: M Description: CHEST : 38 Institution: [facility] Physician: DENISSE DINERO AP chest Clinical history: Dyspnea. Findings: Examination of the chest in AP upright view demonstrates linear atelectatic or fibrotic changes in the mid and lower lung zones. Cardiac silhouette is within normal limits. The aorta is atherosclerotic and tortuous. Aortic arch appears prominent suggesting aortic aneurysm. This might be better evaluated with standard PA and lateral chest x-ray. Otherwise consider CT for definitive evaluation of the aorta. Impression: 1. Tortuous aorta appears enlarged. Rule out thoracic aortic aneurysm. 2. Hyperinflation with linear atelectatic or fibrotic changes in mid and lower lung zones. Electronically signed on Jun 27, 2018 6:08:51 PM SCIENCE INSTRUCTOR by: Ajay Guillory Arterial Blood Gas (ABG) uncompensated. Acute Primary Respiratory Alkalosis, Acute, with: Secondary Metabolic Alkalosis INPUTS: pH > 7.51 P?CO? > 32 mm Hg HCO?- > 27.3 mEq/L Sodium > 132 mEq/L Chloride > 98 mEq/L Albumin > 4.3 g/dL - Orders Orders: ED Orders Category Date Time Status CHEST 1VIEW [RAD] Stat Exams 06/27/18 Ordered CBC/PLATELET/DIFF Stat Lab 06/27/18 17:42 Ordered CMP [CMP] Stat Lab 06/27/18 17:43 Ordered 0.9 % Sodium Chloride [Normal Saline] 1,000 ml Med 06/27/18 17:45 Ordered IV NOW Ipratropium/Albuterol Sulfate [Duoneb] Med 06/27/18 17:42 Discontinued 3 ml NEB .STK-MED ONE Ipratropium/Albuterol Sulfate [Duoneb] Med 06/27/18 17:43 Stat 3 ml NEB NOW STA methylPREDNISolone SOD SUCC [Solu-MEDROL] Med 06/27/18 17:44 Stat 125 mg IVP NOW STA EKG WITH COMPARISON Routine Ther 06/27/18 Completed General Adult Physical Exam - PHYSICAL EXAM GENERAL APPEARANCE: moderate distress EENT: eye inspection normal, ENT inspection normal, pharynx normal, no signs of dehydration, IZABELLA, no nystagmus, TM's nml NECK: normal inspection, thyroid normal. No: lymphadenopathy RESPIRATORY: chest non-tender, other (moderate resp distress RR 40s O2 91%). 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
[2018-06-27 18:06] LABS: EOSINOPHILS % 1.2 % (0.0-6.8); MEAN CORPUSCULAR HEMOGLOBIN 24.4 pg (28.0-34.0); MONOCYTES % 9.9 % (0.0-11.0)
[2018-06-27 18:07] LABS: BASOPHILS % 0.7 (0.0-1.5); NEUTROPHILS # 8.9 # k/uL (1.4-7.7)
[2018-06-27 18:19] LABS: eGFR (Non-African) > 60
--- NOTE | 2018-06-27 19:09 | Diagnostic Imaging Report ---
DENISSE DINERO [facility] [id number] [facility] [address] [address] Report Submission Date: Jun 27, 2018 6:08:51 PM BLENDER Patient Study Name: EPHRAIM RAY Date: Jun 27, 2018 5:46:44 PM BLENDER Modality Type: DX Gender: M Description: CHEST : 38 Institution: [facility] Physician: DENISSE DINERO AP chest Clinical history: Dyspnea. Findings: Examination of the chest in AP upright view demonstrates linear atelectatic or fibrotic changes in the mid and lower lung zones. Cardiac silhouette is within normal limits. The aorta is atherosclerotic and tortuous. Aortic arch appears prominent suggesting aortic aneurysm. This might be better evaluated with standard PA and lateral chest x-ray. Otherwise consider CT for definitive evaluation of the aorta. Impression: 1. Tortuous aorta appears enlarged. Rule out thoracic aortic aneurysm. 2. Hyperinflation with linear atelectatic or fibrotic changes in mid and lower lung zones. Electronically signed on Jun 27, 2018 6:08:51 PM BLENDER by: Ajay LOWERY
[2018-06-27] MEDS ORDERED: LEVALBUTEROL HCL 1.25 MG/3 ML AMPUL.NEB NEB ONE (19:11)
[2018-06-27] MEDS ORDERED: BUDESONIDE 0.5MG/2ML AMPUL.NEB NEB ONE (19:18)
[2018-06-27] MEDS ORDERED: BUDESONIDE 0.5MG/2ML AMPUL.NEB NEB SCH (21:00)
[2018-06-28 02:08] VITALS: BP 176/108
[2018-06-28 07:31] LABS: ABG PH 7.51 (7.35-7.45)
== END 2018-06-27 20:21 | disposition short-term general hospital (02) ==
LOC: ED 17:37
DX: J44.1 Chronic obstructive pulmonary disease with (acute) exacerbation (principal); R06.03 Acute respiratory distress; Z72.0 Tobacco use; Z99.81 Dependence on supplemental oxygen
CPT/HCPCS: 36415; 36600; 71045; 80053; 82803; 84484; 85025; 87040; 87070; 87400; 93005; 94640; 94760; 96374; 99291; 99292; J2930; J7030; J7614; J7626

== ENCOUNTER 2018-12-19 12:05 | Outpatient (CLI) | payer MEDICARE, OTHER ==
[2018-06-28 02:08] VITALS: BP 176/108
== END 2018-12-19 12:07 ==
LOC: RT 12:05
PROVIDERS: ATTEND Family Medicine
DX: I49.9 Cardiac arrhythmia, unspecified (principal)

== ENCOUNTER 2019-03-06 11:08 | Outpatient (CLI) | payer MEDICARE, OTHER ==
[2018-06-28 02:08] VITALS: BP 176/108
== END 2019-03-06 11:10 ==
LOC: RT 11:08
PROVIDERS: ATTEND Nurse Practitioner Family
DX: I49.9 Cardiac arrhythmia, unspecified (principal)
CPT/HCPCS: 93005